=== PATIENT | female | born 1940 | race Caucasian/White ===

== ENCOUNTER 2017-10-15 12:30 | Inpatient (IN) | payer OTHER ==
[~2017-10-15] VITALS: Ht 152.4 cm; Wt 69.4 kg
[2017-10-15] MEDS ORDERED: LIPITOR80 MG PO (13:20)
[2017-10-15] MEDS ORDERED: GRALISE300 MG PO (13:21)
[2017-10-21] MEDS ORDERED: GABAPENTIN800 MG PO (12:40)
[2017-10-21] MEDS ORDERED: DOCUSATE SODIU100 MG PO (12:40)
[2017-10-21] MEDS ORDERED: AMOXICILLIN875 MG PO ×3 (12:41→13:36)
[2017-10-21] MEDS ORDERED: MEDROLPACK PO ×3 (12:41→13:36)
[2017-10-21] MEDS ORDERED: TRAMADOL HCL50 MG PO (12:42)
[2017-10-21] MEDS ORDERED: CLONAZEPAM1 MG PO ×3 (12:42→13:36)
[2017-10-21] MEDS ORDERED: NEURONTIN800 MG PO ×2 (13:24→13:36)
[2017-10-21] MEDS ORDERED: DOLOGESIC 500-1 EACH PO ×2 (13:24→13:36)
[2017-10-21] MEDS ORDERED: COLACE100 MG PO ×2 (13:24→13:36)
== END 2017-10-21 15:08 | DRG 455 ==
LOC: SURG 10-20 05:00 → O/R 10-20 05:00 → SURH 10-20 07:00 → SURG 10-20 12:04 → SURH 10-20 12:30 → SURG 10-21 15:08
PROVIDERS: Orthopaedic Surgery Orthopaedic Surgery of the Spine
PROC: 0SG0071 Fusion of Lumbar Vertebral Joint with Autologous Tissue Substitute, Posterior Approach, Posterior Column, Open Approach (ICD-10-PCS; 2017-10-20)
PROC: 0ST20ZZ Resection of Lumbar Vertebral Disc, Open Approach (ICD-10-PCS; 2017-10-20)
PROC: 0SG00AJ Fusion of Lumbar Vertebral Joint with Interbody Fusion Device, Posterior Approach, Anterior Column, Open Approach (ICD-10-PCS; 2017-10-20)
PROC: 07DS3ZZ Extraction of Vertebral Bone Marrow, Percutaneous Approach (ICD-10-PCS; 2017-10-20)
PROC: 0SG00A0 Fusion of Lumbar Vertebral Joint with Interbody Fusion Device, Anterior Approach, Anterior Column, Open Approach (ICD-10-PCS; principal; 2017-10-20 07:00)
DX: M48.061 Spinal stenosis, lumbar region without neurogenic claudication (principal); M47.26 Other spondylosis with radiculopathy, lumbar region; M51.16 Intervertebral disc disorders with radiculopathy, lumbar region; I10 Essential (primary) hypertension; E11.9 Type 2 diabetes mellitus without complications; E03.8 Other specified hypothyroidism